=== PATIENT | male | born 1950 | race Caucasian/White ===

== ENCOUNTER → 2020-02-16 | Emergency (ER) | payer MEDICARE ==
[~2020-02-16] VITALS: Ht 182.9 cm; Wt 93.2 kg
[2020-02-16 11:21] LABS: D-DIMER 0.37 MG/L FEU (0-0.50)
[2020-02-16 11:52] VITALS: BP 131/90
== END | disposition home or self-care (01) ==
LOC: ER 10:33
DX: S93.402A Sprain of unspecified ligament of left ankle, initial encounter (principal); S96.912A Strain of unspecified muscle and tendon at ankle and foot level, left foot, initial encounter; S90.02XA Contusion of left ankle, initial encounter; I48.91 Unspecified atrial fibrillation; Z88.5 Allergy status to narcotic agent; W18.30XA Fall on same level, unspecified, initial encounter; Y93.89 Activity, other specified; Y92.89 Other specified places as the place of occurrence of the external cause; Y99.8 Other external cause status
CPT/HCPCS: 36415; 85379; 99284

== ENCOUNTER 2020-02-23 08:57 | Emergency (ER) | payer MEDICARE ==
[~2020-02-23] VITALS: Ht 182.9 cm; Wt 96.0 kg
[2020-02-23] MEDS ORDERED: HYDROcodone/acetaminophen 10/325mg tab PO ONE (09:35)
--- NOTE | 2020-02-23 09:41 | NUR ---
WENT IN TO APPLY A BOOT FOR PT, PT REQUESTED TO SPEAK WITH PA ABOUT WEARING A BOOT OR NOT. DID NOT APPLY BOOT
[2020-02-23] MEDS ORDERED: TRAM50TA2 PO (09:48)
[2020-02-23 10:24] VITALS: BP 148/103
== END 2020-02-23 10:26 | disposition home or self-care (01) ==
LOC: ER 08:57
DX: S90.32XA Contusion of left foot, initial encounter (principal); M79.605 Pain in left leg; I48.91 Unspecified atrial fibrillation; Z88.5 Allergy status to narcotic agent; W01.0XXA Fall on same level from slipping, tripping and stumbling without subsequent striking against object, initial encounter; Y93.89 Activity, other specified; Y92.89 Other specified places as the place of occurrence of the external cause; Y99.8 Other external cause status
CPT/HCPCS: 99284